=== PATIENT | female | born 1985 | race Caucasian/White ===

== ENCOUNTER 2019-04-04 22:59 | Emergency (ER) | payer OTHER, SELFPAY ==
[2019-04-04 23:08] VITALS: BP 126/90; PULSE 99; RESP 15; TEMP 36.6; O2SAT 99; BMI 21.9
--- NOTE | 2019-04-04 23:11 | PC.NURSE ---
Pt noticed lines of rainbow type lights in the center of her vision from the left eye about an hour ago. This increased in intensity, but has now resolved. Denies any symptoms at this time. Denies vision change, FAST exam negative. States earlier this evening she had a campfire in backyard and was rubbing her eyes a lot. Is concerned for possible david or debris in eye.
--- NOTE | 2019-04-04 23:13 | ED.EYEPROB ---
HPI - Eye Problem General Chief complaint: Eye Problems Stated complaint: rainbow colors in left eye Time Seen by Provider: 04/04/19 23:10 Source: patient and family Mode of arrival: ambulatory Limitations: no limitations History of Present Illness HPI Narrative: This is a 33-year-old female comes to the emergency department with complaint of vision change that she initially describes in her left eye and states she is not sure which eye. She describes initially as a thin line projecting outward. She states it was sort of a black and white coloration and then it became more of a crescent in a vertical plane on the left side of her vision. Patient states that it was colorful but not all the colors of the [place]. And then it sort of looks like triangles but only lines the middle portion was not filled in. Patient states that it sort of turned into a blob and then became sort of grayish in color and then resolved. She states that she did close her eyes but she was not sure if it completely disappeared when she closed each eye individually. She denies any headache. She states that no other vision changes were noted. She wears glasses, occasionally contacts but rarely because she has dry eye. She denies any other eye issues. She has never had any eye surgery. She has not had any drainage, she does not have any eye pain. Her symptoms lasted 10-15 minutes and then totally resolved. Related Data Allergies Allergy/AdvReac Type Severity Reaction Status Date / Time Sulfa (Sulfonamide Allergy Verified 04/04/19 23:08 Antibiotics) Review of Systems Review of Systems ROS Unobtainable: All systems reviewed & are unremarkable except as noted in HPI and below Constitutional Constitutional: Denies headache(s) Eyes Eyes: Reports system reviewed and no additional complaints, except as docu, Denies blind spots, Denies blurry vision, Reports change in vision, Denies decreased night vision, Denies diplopia, Denies eye discharge, Reports dry eyes (Chronically), Reports floaters, Denies irritation, Denies loss of vision, Reports other visual disturbances, Denies eye pain, Reports requires corrective lenses, Denies seeing flashes, Denies photophobia, Denies spots in vision and Denies tunnel vision ENT Ears, Nose, Mouth, and Throat: Reports as per HPI, Denies facial pain and Denies headache(s) Neurologic Neurologic: Denies headache(s) and Denies loss of vision FOR[facility], [facility] Social History Smoking Status: Unknown if ever smoked Social History Smoking Status: Unknown if ever smoked Exam Narrative Exam Narrative: GEN: well nourished, well appearing female, alert and oriented x 3, patient appears to be in mild distress. HEENT: Atraumatic, pupils are equal round reactive to light, extraocular movements are intact, nares are clear Visual acuity: See chart with last. IOP: Right 11 mm Hg, Left 11 mm Hg General: no globe trauma Eyelids: normal inspection, eyelids everted for exam on bilateral. Conjunctiva/Sclera: normal inspection Corneas: normal inspection, examined with fluroscein on bilaterally, no uptake appreciated EOM: intact, no palsy/entrapment Pupils: PERRL, normal accomadation, pupil normal Anterior Chambers: normal inspection, no hypema Posterior: normal fundoscopic on bilaterally difficult exam. HEART: Regular rate and rhythm without murmur, clicks, rubs. LUNGS:Lungs clear to auscultation, no wheezes, rales, crackles, chest moves symmetrically MSCL: Non-tender, no muscle atrophy, muscles strength 5/5 upper and lower extremities, full range of motion, normal gait NEURO:CN 2-12 intact, sensation normal Initial Vital Signs Initial Vital Signs: Vital Signs Temperature 97.9 F 04/04/19 23:08 Pulse Rate 99 H 04/04/19 23:08 Respiratory Rate 15 04/04/19 23:08 Blood Pressure 126/90 04/04/19 23:08 Pulse Oximetry 99 04/04/19 23:08 Course Orders Ordered: Discontinued Medications Proparacaine HCl (Parcaine 0.5% Ophth Nina) 1 drops EYE-BOTH NOW ONE Stop: 04/04/19 23:42 Vital Signs Vital signs: Vital Signs - 8 hr 04/04/19 23:08 Temperature 97.9 F Pulse Rate 99 H Respiratory Rate 15 Blood Pressure 126/90 Pulse Oximetry 99 MDM - Eye Problem Differential Diagnosis Differential diagnosis: Likely corneal abrasion, conjunctivitis, glaucoma, corneal ulcer, ruptured globe and other (Retinal injury or detachment, floaters) MDM Narrative Medical decision making narrative: No acute findings on patient's eye exam. She states symptoms have resolved. I am unable to have a excellent posterior eye examination but no obvious retinal tears are appreciated. We discussed that I would like her to follow up with Ophthalmology today and for her to call at 8:30 a.m. or 9:00 a.m. by appointment. Contact information was given. She is aware that she should not wear contacts until cleared by Ophthalmology. She continue to wear her glasses. Discharge Plan Departure Patient Disposition: Home Clinical Impression: Alteration in vision Discharge Date/Time: 04/05/19 00:14 Instructions: DI for Visual Field Disturbances Activity Restrictions/Additional Instructions: Follow-up with Ophthalmology this morning, call for an appointment 1st thing in the morning. Let them know that you were seen in the emergency department and we asked that you follow-up for evaluation. Do not wear your contacts until cleared by Ophthalmology. Return to the emergency department for loss of vision, sudden severe eye pain, decreasing vision, persistent vomiting, new swelling surrounding the eye or of the eye itself or other new or concerning symptoms. Referrals: Hollie Mobley MD [Physician] -
== END 2019-04-05 00:14 | disposition home or self-care (01) ==
LOC: ED 04-05 00:06
PROVIDERS: Emergency Provider Emergency Medicine
DX: H54.7 Unspecified visual loss (principal)
CPT/HCPCS: 99282